=== PATIENT | female | born 1960 | race Caucasian/White ===

== ENCOUNTER → 2017-02-22 | Outpatient (CLI) | payer BC ==
[~2017-02-22] MED LIST: BUPR100T4 PO; CLON0.5T3 PO; DULO60CA44 PO; IBUP-103 PO
--- NOTE | 2017-02-22 12:40 | DIAGNOSTIC IMAGING REPORT ---
RIGHT HEEL MIN 2 VIEWS CLINICAL HISTORY: Right heel pain. COMPARISON: None FINDINGS: No fracture or osseous lesion is identified within the right calcaneus. There is moderate posterior and plantar calcaneal spurring. There is possible thickening of the distal Achilles which is suboptimally assessed by radiography. IMPRESSION: Posterior calcaneal spurring with apparent thickening of the Achilles which is suboptimally assessed by radiography. This may reflect Achilles tendinopathy. Electronically signed by: Calvin Coker M.D. 02/22/2017 12:38 PM Dictated Date/Time: 02/22/2017 12:36 PM
== END | disposition home or self-care (01) ==
LOC: C.RAD1850 12:06
PROVIDERS: ATTEND Family Medicine
DX: M77.31 Calcaneal spur, right foot (principal)

== ENCOUNTER → 2017-10-14 | Outpatient (CLI) | payer OTHER ==
--- NOTE | 2017-10-15 15:07 | MAMMOGRAPHY REPORT ---
BILATERAL DIGITAL SCREENING MAMMOGRAM TOMOSYNTHESIS WITH CAD: 10/14/2017 CLINICAL HISTORY: Routine screening. Patient has no complaints. TECHNIQUE: Breast tomosynthesis in addition to standard 2D mammography was performed. Current study was also evaluated with a Computer Aided Detection (CAD) system. COMPARISON: Comparison is made to exams dated: 08/25/2016 mammogram, 03/27/2013 mammogram, 10/05/2014 m ammogram, 03/14/2012 mammogram, 05/19/2010 specimen, and 12/11/2009 ultrasound - [facility] enter. BREAST COMPOSITION: There are scattered areas of fibroglandular density in both breasts. FINDINGS: No suspicious masses, calcifications, or areas of architectural distortion are noted in ei ther breast. There has been no significant interval change compared to prior exams. There are stable postsurgical changes in the left upper outer quadrant. IMPRESSION: ACR BI-RADS CATEGORY 2: BENIGN There is no mammographic evidence of malignancy. A 1 year screening mammogram is recommended. The pa tient will receive written notification of the results. Approximately 10% of breast cancers are not detected with mammography. A negative mammographic report should not delay biopsy if a clinically suggestive mass is present. Chloe Barnett M.D. /:10/14/2017 15:09:23 Enamel Drier: Elizabeth SIMPSON)(), [facility] letter sent: Normal 1/2 BI-RADS Code: ACR BI-RADS Category 2: Benign
== END | disposition home or self-care (01) ==
LOC: C.MAMM 13:24
PROVIDERS: ATTEND Obstetrics & Gynecology
DX: Z12.31 Encounter for screening mammogram for malignant neoplasm of breast (principal)

== ENCOUNTER 2018-05-05 08:21 | Emergency (ER) | payer OTHER ==
[~2018-05-05] VITALS: Ht 152.4 cm; Wt 86.7 kg
[~2018-05-05 08:21] MED LIST changes: -CLON0.5T3 PO; +CLON0.5T9 PO
[2018-05-05 08:23] VITALS: Ht 152.4 cm; Wt 86.7 kg
[2018-05-05] MEDS ORDERED: FLUO10CA48 PO (08:47)
[2018-05-05] MEDS ORDERED: BUPR-83 PO (08:47)
[2018-05-05] MEDS ORDERED: BENZONATATE 100MG CAP PO STA (08:57)
[2018-05-05] MEDS ORDERED: ALBUTEROL HFA 8 GM INHALER INH STA (08:57)
[2018-05-05 09:19] VITALS: O2SAT 96
[2018-05-05 09:27] LABS: HEMATOCRIT 44.5 % (37-47); HEMOGLOBIN 15.3 g/dL (12.0-16.0); MEAN CELL VOLUME 89.5 fL (80-100); MEAN CORPUSCULAR HEMOGLOBIN 30.8 pg (25-34); MEAN CORPUSCULAR HGB CONC 34.4 g/dl (32-36); MEAN PLATELET VOLUME 11.5 fL (7.4-10.4); PLATELET COUNT 188 K/uL (130-400); RED CELL DISTRIBUTION WIDTH CV 13.4 % (11.5-14.5); RED CELL DISTRIBUTION WIDTH SD 43.9 fL (36.4-46.3); WHITE BLOOD COUNT 23.26 K/uL (4.8-10.8)
[2018-05-05 09:49] LABS: BASO % 0.1 %; BASO ABS # 0.02 K/uL (0-0.2); BLOOD UREA NITROGEN 15 mg/dl (7-18); CALCIUM 8.8 mg/dl (8.5-10.1); CARBON DIOXIDE 26 mmol/L (21-32); CREATININE 0.69 mg/dl (0.60-1.20); EOS % 0.1 %; EOS ABS # 0.03 K/uL (0-0.5); GLUCOSE 106 mg/dl (70-99); LYMPH % 5.5 %; LYMPH ABS # 1.29 K/uL (1.2-3.4); MONO % 7.6 %; MONO ABS # 1.76 K/uL (0.11-0.59); NEUT % 86.3 %; NEUT ABS # 20.06 K/uL (1.4-6.5); POTASSIUM 4.1 mmol/L (3.5-5.1); SODIUM 138 mmol/L (136-145)
[2018-05-05 09:52] LABS: INFLUENZA B ANTIGEN Neg for Influ B (NEG)
[2018-05-05 10:01] LABS: MONOSPOT NEG (NEG)
[2018-05-05] MEDS ORDERED: SODIUM CHLORIDE 0.9% 1000ML 1,000 ML IV STA (10:14)
--- NOTE | 2018-05-05 10:34 | DIAGNOSTIC IMAGING REPORT ---
CHEST 2 VIEWS ROUTINE HISTORY: 58 years-old Female cough acute cough COMPARISON: Chest radiographs 06/10/2011 TECHNIQUE: PA and lateral views of the chest FINDINGS: Patient is slightly rotated to the right. Cardiomediastinal and hilar silhouettes are within normal limits. There is no pneumothorax, pleural effusion or overt pulmonary edema. Ill-defined posterior basilar opacity seen only on the lateral view appears to be present within the left lung base. Unchanged mild interstitial coarsening. Surgical clips project over the left chest wall, left breast. Degenerative changes of the shoulders and spine. IMPRESSION: Ill-defined posterior basilar opacity seen only on the lateral view appears to be located within the left lower lobe, suspicious for pneumonia in the appropriate clinical setting. The above report was generated using voice recognition software. It may contain grammatical, syntax or spelling errors. Electronically signed by: Nilesh Miranda M.D. 05/05/2018 10:33 AM Dictated Date/Time: 05/05/2018 10:30 AM
--- NOTE | 2018-05-05 11:05 | EMERGENCY ROOM VISIT NOTE ---
History First contact with patient: 08:35 Chief Complaint: COUGH Stated Complaint: COUGH, CHEST CONGESTION, JOINT PAIN, FEVER Nursing Triage Summary: Patient c/o of cough and yellow sputum x 2 weeks. Rib pain x 3 days. Body aches and fever since this morning. Took 2 aleves @ 0600 am. History of Present Illness The patient is a 58 year old female who presents to the Emergency Room with complaints of approximately 2 week long history of cough. The patient states she initially had a productive cough that has been more dry in the past 2 days. She states yesterday she began experiencing dyspnea, and today awoke with headache, joint pains, pain in her ribs from coughing, and neck pain. The patient does report a sore throat and wheezing. She states this morning she also spiked a fever of 100.9F. She took 2 Aleve which did seem to help with the fever. She does spend a lot of time outside, and states she is concerned for Lyme disease. She denies any nasal discharge, blood in her sputum, nausea, vomiting, chest pain, or palpitations. She does report some incontinence with coughing. The patient is a current smoker and reports history of bronchitis, but states this seems worse than her normal bronchitis. She denies any allergies. 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 Review of Systems A complete 10 point review of systems was reviewed with the patient with pertinent positives and negatives as per history of present illness. All else were negative. Social History Smoking Status: Current Every Day Smoker Smokeless Tobacco Use: No Alcohol Use: occasionally Housing Status: lives with family Occupation Status: employed Current/Historical Medications Scheduled Bupropion (Wellbutrin), 100 MG PO DAILY Doxycycline Hyclate (Vibramycin), 100 MG PO BID Fluoxetine (Prozac), 10 MG PO DAILY Ibuprofen Tab (Advil), 800 MG PO PRN Scheduled PRN Benzonatate (Tessalon Perles), 200 MG PO TID PRN for Cough Physical Exam Vital Signs Date Time Temp Pulse Resp B/P (MAP) Pulse Ox O2 Delivery O2 Flow Rate FiO2 05/05/18 11:32 37.1 82 20 143/78 97 05/05/18 10:15 36.8 103 124/72 97 Room Air 05/05/18 09:19 96 Room Air 05/05/18 09:16 106 05/05/18 08:23 37.2 75 18 144/95 96 Room Air Physical Exam VITALS: Vitals are noted on the nurse's note and reviewed by myself. Vital signs stable. GENERAL: This is a 58-year-old obese white female, in no acute distress, nondiaphoretic, well-developed well-nourished. SKIN: The skin was without rashes, erythema, edema, or bruising. There is no tenting of the skin. Capillary reflex less than 2 seconds. HEAD: Normocephalic atraumatic. EARS: External auditory canals clear, tympanic membranes pearly ellis without erythema or effusion bilaterally. EYES: Pupils equal round and reactive to light and accommodation. Conjunctivae without injection, sclerae without icterus. Extraocular movements intact. NOSE: Patent, turbinates without inflammation or discharge. No sinus tenderness. MOUTH: Mucous membranes moist. Tonsils are not enlarged. Pharynx without erythema or exudate. Uvula midline. Airway patent. Tongue does not deviate. NECK: Supple without nuchal rigidity. No lymphadenopathy. No thyromegaly. Cervical spine is nontender. No JVD. HEART: Regular rate and rhythm without murmurs gallops or rubs. LUNGS: Mild wheezing diffusely. The lungs were otherwise without rales or rhonchi bilaterally. No dullness to percussion. No retractions or accessory muscle use. ABDOMEN: Positive bowel sounds x 4. Normal tympanic percussion. Soft, nontender, without masses or organomegaly. Wing sign negative. No guarding or rebound tenderness. MUSCULOSKELETAL: No muscle atrophy, erythema, or edema noted. Full range of motion without joint tenderness in all extremities. No tenderness to palpation. Normal gait. Strength 5/5 throughout. NEURO: Patient was alert and oriented to person place and time. Normal sensation to light and sharp touch. Deep tendon reflexes 2+ throughout. No focal neurological deficits. Medical Decision & Procedures ER Provider Diagnostic Interpretation: CHEST 2 VIEWS ROUTINE HISTORY: 58 years-old Female cough acute cough COMPARISON: Chest radiographs 06/10/2011 TECHNIQUE: PA and lateral views of the chest FINDINGS: Patient is slightly rotated to the right. Cardiomediastinal and hilar silhouettes are within normal limits. There is no pneumothorax, pleural effusion or overt pulmonary edema. Ill-defined posterior basilar opacity seen only on the lateral view appears to be present within the left lung base. Unchanged mild interstitial coarsening. Surgical clips project over the left chest wall, left breast. Degenerative changes of the shoulders and spine. IMPRESSION: Ill-defined posterior basilar opacity seen only on the lateral view appears to be located within the left lower lobe, suspicious for pneumonia in the appropriate clinical setting. The above report was generated using voice recognition software. It may contain grammatical, syntax or spelling errors. Electronically signed by: Nilesh Miranda M.D. 05/05/2018 10:33 AM Dictated Date/Time: 05/05/2018 10:30 AM Laboratory Results 05/05/18 09:15 Red Blood Count 4.97, Mean Corpuscular Volume 89.5, Mean Corpuscular Hemoglobin 30.8, Mean Corpuscular Hemoglobin Concent 34.4, Mean Platelet Volume 11.5, Neutrophils (%) (Auto) 86.3, Lymphocytes (%) (Auto) 5.5, Monocytes (%) (Auto) 7.6, Eosinophils (%) (Auto) 0.1, Basophils (%) (Auto) 0.1, Neutrophils # (Auto) 20.06, Lymphocytes # (Auto) 1.29, Monocytes # (Auto) 1.76, Eosinophils # (Auto) 0.03, Basophils # (Auto) 0.02 05/05/18 09:15 Test 05/05/18 00:00 05/05/18 09:10 05/05/18 09:15 Urine Color YELLOW Urine Appearance CLEAR (CLEAR) Urine pH 7.0 (4.5-7.5) Urine Specific [place]y 1.006 (1.000-1.030) Urine Protein NEG (NEG) Urine Glucose (UA) NEG (NEG) Urine Ketones NEG (NEG) Urine Occult Blood NEG (NEG) Urine Nitrite NEG (NEG) Urine Bilirubin NEG (NEG) Urine Urobilinogen NEG (NEG) Urine Leukocyte Esterase NEG (NEG) Influenza Type A Antigen Neg for Influ A (NEG) Influenza Type B Antigen Neg for Influ B (NEG) White Blood Count 23.26 K/uL (4.8-10.8) Red Blood Count 4.97 M/uL (4.2-5.4) Hemoglobin 15.3 g/dL (12.0-16.0) Hematocrit 44.5 % (37-47) Mean Corpuscular Volume 89.5 fL (80-100) Mean Corpuscular Hemoglobin 30.8 pg (25-34) Mean Corpuscular Hemoglobin Concent 34.4 g/dl (32-36) Platelet Count 188 K/uL (130-400) Mean Platelet Volume 11.5 fL (7.4-10.4) Neutrophils (%) (Auto) 86.3 % Lymphocytes (%) (Auto) 5.5 % Monocytes (%) (Auto) 7.6 % Eosinophils (%) (Auto) 0.1 % Basophils (%) (Auto) 0.1 % Neutrophils # (Auto) 20.06 K/uL (1.4-6.5) Lymphocytes # (Auto) 1.29 K/uL (1.2-3.4) Monocytes # (Auto) 1.76 K/uL (0.11-0.59) Eosinophils # (Auto) 0.03 K/uL (0-0.5) Basophils # (Auto) 0.02 K/uL (0-0.2) RDW Standard Deviation 43.9 fL (36.4-46.3) RDW Coefficient of Variation 13.4 % (11.5-14.5) Immature Granulocyte % (Auto) 0.4 % Immature Granulocyte # (Auto) 0.10 K/uL (0.00-0.02) Erythrocyte Sedimentation Rate 5 mm/hr (0-21) D-Dimer 300 ug/L FEU (0-500) Anion Gap 6.0 mmol/L (3-11) Est Creatinine Clear Calc Drug Dose 89.1 ml/min Estimated GFR () 112.8 Estimated GFR (Non- 97.3 BUN/Creatinine Ratio 21.8 (10-20) Calcium Level 8.8 mg/dl (8.5-10.1) Troponin I < 0.015 ng/ml (0-0.045) Pro-B-Type Natriuretic Peptide 102 pg/ml (0-900) Lyme Disease IgG Antibody NEG (NEG) Lyme Disease IgM Antibody NEG (NEG) Monoscreen NEG (NEG) Medications Administered Medications (Trade) Dose Ordered Sig/Sabra Route Start Time Stop Time Status Last Admin Dose Admin Albuterol (Ventolin Hfa Inhaler) 2 puffs NOW STAT INH 05/05/18 08:57 05/05/18 09:02 DC 05/05/18 09:20 2 PUFFS Benzonatate (Tessalon Perles Cap) 200 mg NOW STAT PO 05/05/18 08:57 05/05/18 09:02 DC 05/05/18 09:20 200 MG Sodium Chloride 1,000 ml @ 999 mls/hr Q1H1M STAT IV 05/05/18 10:14 05/05/18 11:14 DC 05/05/18 10:34 999 MLS/HR Doxycycline Hyclate (Vibramycin Cap) 100 mg ONE STAT PO 05/05/18 11:09 05/05/18 11:10 DC 05/05/18 11:32 100 MG ECG Per My Interpretation Indication: chest pain Rate (beats per minute): 103 Rhythm: sinus tachycardia Findings: no acute ischemic change, no ectopy Comparison ECG Date: 05 Aug 2012 Change: tachycardia is new ED Course The patient was seen and evaluated as above. IV access obtained, labs drawn. The patient was given an albuterol inhaler, benzonatate, normal saline solution. Imaging performed and reviewed by myself and radiologist as above. Labs reviewed by myself. I discussed the findings with the patient at bedside. She is given her first dose of doxycycline. I discussed the case with my attending. Discharge instructions reviewed, the patient was discharged home in good condition. Medical Decision This is a 58-year-old female patient was emergency department today complaining of 2 week long history of cough. She initially had a productive cough, however the cough is not dry. She does report a fever and body aches which began today. She has been taking only Aleve for her symptoms. Workup here in the emergency department was concerning for pneumonia. The patient's chest x-ray did show an infiltrate in the left lower lobe. The patient's lab work was significant for leukocytosis of 23,000. Sed rate was normal. Renal function and electrolytes were normal. Bone and testing was negative. BNP was negative. D-dimer was normal. Urinalysis without signs of infection. Lyme disease testing was negative. I suspect the pneumonia as the cause of the patient's symptoms. She will will be started on antibiotics at this time. I did recommend azithromycin, but the patient states "that does not work for me" and requests a different antibiotic. She will be started on doxycycline as a second line treatment. The patient verbalized agreement and understanding with this treatment plan. She will be given a prescription for Tessalon Perles, she does report significant improvement in her coughing with this medication. All questions answered to the patient's satisfaction after discharge. Etiologies such as cardiac ischemia, aortic dissection, pulmonary embolism, pneumonia, pneumothorax, musculoskeletal, infections, gastrointestinal, as well as others were entertained. The chart was completed utilizing [employer] Speech voice recognition software. Grammatical errors, random word insertions, pronoun errors, and incomplete sentences are an occasional consequence of this system due to software limitations, ambient noise, and hardware issues. Any formal questions or concerns about the content, text, or information contained within the body of this dictation should be directly addressed to the provider for clarification. Medication Reconcilliation Current Medication List: was personally reviewed by me Blood Pressure Screening Patient's blood pressure: Elevated blood pressure Impression Primary Impression: Pneumonia Departure Information Dispostion Home / Self-Care Condition GOOD Prescriptions Benzonatate (Tessalon Perles) 200 Mg Cap 200 MG PO TID Y for Cough, #30 CAP Prov: Ame Steiner PA-C 05/05/18 Doxycycline Hyclate (VIBRAMYCIN) 100 Mg Cap 100 MG PO BID for 10 Days, #20 CAP Prov: Ame Steiner PA-C 05/05/18 Referrals Saad Thompson III, CRNP (PCP) Forms HOME CARE DOCUMENTATION FORM, IMPORTANT VISIT INFORMATION Patient Instructions ED Pneumonia Adult, My [facility] Additional Instructions You were seen and evaluated in the emergency department today for a cough. As discussed, based on labs and imaging, there were findings consistent with pneumonia. You have been prescribed Doxycycline to be taken as prescribed. This is an antibiotic. All antibiotics have the potential to cause diarrhea. Stop this medication and contact a medical provider if you were to develop any significant adverse side effects including: wheezing, shortness of breath, passing out, vomiting, or a diffuse rash. Always take antibiotics as directed and COMPLETE the ENTIRE course regardless of the improvement of your symptoms. Be sure to eat prior to taking this antibiotic. Do not eat or drink milk products immediately before taking this medication. Make sure that the pill is completely swallowed each time. Protect yourself with sunscreen while on this antibiotic as it increases your skin's sensitivity to the light and cause bad sunburns. You have been provided with an albuterol inhaler to use for wheezing or difficulty breathing. Use this inhaler 1-2 puffs every 4-6 hours as needed. If you find that your symptoms are not improving with the use of the inhaler, or if you find that you need to use the inhaler longer than 1 week, return to the ED or follow-up with your PCP. You have been given benzonatate (Tessalon Pearles) to be used for coughing. These should be taken 1 capsule up to 3 times per day as needed for coughing. Do not take this medication more than prescribed. You may use this medication in addition to OTC cough medications. For your sore throat, you may use a 1:1 mixture of liquid Benadryl and liquid Maalox. Gargle and spit this mixture. It will help to soothe the throat and provide some relief. Drink warm tea with honey and lemon, as this will also help to soothe the throat. Gargle with salt water frequently. As discussed, you should take OTC Mucinex and/or Sudafed for your symptoms. Please do not exceed the recommended daily dosages. Ibuprofen(Motrin, Advil) may be used for fever or pain. Use 600mg every six hours as needed. Take with food. Avoid using more than 2400mg in a 24 hour period. Do not use 2400mg per day for more than three consecutive days without physician direction. Prolonged inappropriate use can lead to stomach upset or ulcers. You may take Naproxen 1-2 tablets twice daily in place of ibuprofen. This medication will help with the swelling in your sinuses. (AND/OR) Acetaminophen(Tylenol) may be used for fever or pain. Use 1000mg every six hours as needed. Avoid using more than 3000mg in a 24 hour period. For congestion, you may use Flonase OTC. Please get plenty of rest and drink plenty of fluids. Please follow-up with your PCP by Wednesday for reevaluation. Return to the emergency department for coughing up blood, difficulty breathing, chest pain, worsening symptoms, or for other concerns. Problem Qualifiers Primary Impression: Pneumonia Pneumonia type: due to unspecified organism Laterality: left Lung location : lower lobe of lung Qualified Codes: J18.1 - Lobar pneumonia, unspecified organism
[2018-05-05] MEDS ORDERED: DOXYCYCLINE HYCLATE 100 MG CAP PO STA (11:09)
[2018-05-05] MEDS ORDERED: DOXY100C PO (11:16)
[2018-05-05] MEDS ORDERED: BENZ1CAP90 PO (11:16)
[2018-05-05 11:32] VITALS: BP 143/78; PULSE 82; TEMP 37.1; O2SAT 97
== END 2018-05-05 11:34 | disposition home or self-care (01) ==
LOC: C.EDB 08:23 → C.EDA 11:34
DX: J18.1 Lobar pneumonia, unspecified organism (principal); F17.200 Nicotine dependence, unspecified, uncomplicated